=== PATIENT | male | born 1945 | race Caucasian/White ===

== ENCOUNTER 2016-08-26 10:06 | Day surgery (SDC) | payer MEDICARE ==
[~2016-08-26] VITALS: Ht 175.3 cm; Wt 135.4 kg
[2016-08-26] VITALS (9 sets, daily range): BP systolic 84–178; BP diastolic 55–87; PULSE 72–90; TEMP 97.8–98.4
[~2016-08-26 10:06] MED LIST: ABILIFY5 MG PO; ASPIRIN 81M81 MG/TA2 PO; ATIVAN 1MG T1 MG/TAB PO; CAPSAICIN TP; CEPHALEXIN500 M1 PO; COLACE50 MG PO; COUMADIN 5MG5 MG/TAB PO; COUMADIN 77.5 MG/TAB PO; COZAAR100 MG PO; D-31000 IU PO; DETROL 2MG TAB2 MG PO; DILAUDID 2MG TAB2 MG PO; DISALCID PO; GLUCOPHAGE1000 MG PO; GLUCOTROL 5M5 MG/TAB PO; KLOR-CON 1010 MEQ PO; LIPITOR 40MG TA40 MG PO; LOPRESSOR 225 MG/TAB PO; LYRICA 75MG CAP75 MG PO; MS CONTIN 115 MG/TAB PO; NIZORAL CREAM15 GM TP; NORCO 325 MG-51 TAB PO; NORCO 325 MG-7.1 TAB PO; PERI-COLACE 501 TAB PO; PYRIDIUM 100MG100 MG PO; SINEQUAN150 MG PO; VENLAFAXINE225 MG PO; WELLBUTRIN 75MG75 MG PO; ZOFRAN 4MG T4 MG/TAB PO
[2016-08-26] MEDS ORDERED: RESTORIL30 MG PO (10:51)
[2016-08-26] MEDS ORDERED: VTAMINC250TA PO (11:05)
[2016-08-26] MEDS ORDERED: COZAAR 25MG25 MG/TAB PO (11:06)
[2016-08-26] MEDS ORDERED: NOVLOG SQ (11:13)
[2016-08-26] MEDS ORDERED: INSLANT SQ (11:14)
[2016-08-26] MEDS ORDERED: MOBIC15 MG PO (11:15)
[2016-08-26] MEDS ORDERED: MIRALAX PA17 GM/Dose PO (11:16)
[2016-08-26] MEDS ORDERED: ARICEPT 5MG PO (11:17)
[2016-08-26] MEDS ORDERED: NORCO 325 MG-51 TAB PO (12:59)
[2016-08-26] MEDS ORDERED: PYRIDIUM 100MG100 MG PO (12:59)
== END 2016-08-26 15:19 | disposition home or self-care (01) ==
LOC: SDCO 10:06
DX: N20.0 Calculus of kidney (principal); Z87.442 Personal history of urinary calculi; I12.9 Hypertensive chronic kidney disease with stage 1 through stage 4 chronic kidney disease, or unspecified chronic kidney disease; E11.22 Type 2 diabetes mellitus with diabetic chronic kidney disease; N18.9 Chronic kidney disease, unspecified; E11.42 Type 2 diabetes mellitus with diabetic polyneuropathy; Z85.048 Personal history of other malignant neoplasm of rectum, rectosigmoid junction, and anus; Z79.01 Long term (current) use of anticoagulants; G20 Parkinson's disease; G30.9 Alzheimer's disease, unspecified; F02.80 Dementia in other diseases classified elsewhere, unspecified severity, without behavioral disturbance, psychotic disturbance, mood disturbance, and anxiety; E78.5 Hyperlipidemia, unspecified; E66.9 Obesity, unspecified; N52.9 Male erectile dysfunction, unspecified
CPT/HCPCS: C1769; C1894; C2617; J0690; J2405; J2704; J3010; J7030; Q9967

== ENCOUNTER 2016-08-29 22:20 | Inpatient (IN) | payer MEDICARE ==
[~2016-08-29] VITALS: Ht 175.3 cm; Wt 137.0 kg
[2016-08-29] VITALS (27 sets, daily range): BP systolic 137; BP diastolic 87; PULSE 91; TEMP 99; O2SAT 97–100
[~2016-08-29 22:20] MED LIST changes: +ARICEPT 5MG PO; +COZAAR 25MG25 MG/TAB PO; +INSLANT SQ; +MIRALAX PA17 GM/Dose PO; +MOBIC15 MG PO; +NOVLOG SQ; +RESTORIL30 MG PO; +VTAMINC250TA PO
[2016-08-29] MEDS ORDERED: CAPSAICIN0.025% TOP (23:48)
[2016-08-30] VITALS (642 sets, daily range): BP systolic 129–152; BP diastolic 59–89; PULSE 75–103; TEMP 97.3–101.8; O2SAT 56–100
[2016-08-30 01:25] LABS: BASO % 0.2 % (0.0-2.0); GRAN # 11.8 (1.4-6.5); HEMATOCRIT 44.4 % (42.0-52.0); HEMOGLOBIN 14.4 g/dl (13.5-18.0); LYMPH # 0.9 (1.2-3.4); LYMPH % 6.8 % (20.0-51.0); MEAN CELL VOLUME 96 fl (80.0-100.0); MEAN CORPUSCULAR HEMOGLOBIN 31 pg (27.0-31.0); MEAN CORPUSCULAR HGB CONC 32 g/dl (33.0-37.0); MEAN PLATELET VOLUME 9.2 fl (7.4-10.4); MONO % 7.5 % (1.7-9.3); PLATELET COUNT 205 K/mm3 (130-400); RED BLOOD COUNT 4.65 M/mm3 (4.20-5.60); REDCELL DISTRIBUTION WIDTH-CV 13.7 % (11.5-14.5); WHITE BLOOD COUNT 13.9 K/mm3 (4.8-10.8)
[2016-08-30 01:37] LABS: ADJUSTED CALCIUM 8.5 mg/dL (8.4-10.2); ALBUMIN 3.6 gm/dL (3.5-5.0); BILIRUBIN,TOTAL 1.1 mg/dL (0.0-1.0); CALCIUM 8.2 mg/dL (8.4-10.2); CREATININE, serum 1.47 mg/dL (0.66-1.25); POTASSIUM 4.4 mmol/L (3.4-5.0); TOTAL PROTEIN 6.5 gm/dL (6.4-8.2)
[2016-08-30 04:04] LABS: PH 5 (5-8); SQUAMOUS EPITHELIAL None Seen /hpf; URINE APPEARANCE Cloudy; URINE BACTERIA Rare /hpf; URINE BILIRUBIN Negative (NEGATIVE); URINE BLOOD 3+ (NEGATIVE); URINE COLOR Yellow; URINE GLUCOSE 2+ (NEGATIVE); URINE KETONE Trace (NEGATIVE); URINE RBC >50 /hpf; URINE UROBILINOGEN Negative (NEGATIVE)
[2016-08-30 04:05] LABS: URINE WBC >50 /hpf
[2016-08-30 06:30] LABS: INR 1.7 (0.8-3.0)
[2016-08-31 03:54] VITALS: BP 123/56; PULSE 75; TEMP 100.2
[2016-08-31 07:41] LABS: HEMATOCRIT 42.1 % (42.0-52.0); HEMOGLOBIN 13.6 g/dl (13.5-18.0); MEAN CELL VOLUME 96 fl (80.0-100.0); MEAN CORPUSCULAR HEMOGLOBIN 31 pg (27.0-31.0); MEAN CORPUSCULAR HGB CONC 32 g/dl (33.0-37.0); PLATELET COUNT 191 K/mm3 (130-400); RED BLOOD COUNT 4.38 M/mm3 (4.20-5.60); REDCELL DISTRIBUTION WIDTH-CV 13.8 % (11.5-14.5); WHITE BLOOD COUNT 6.4 K/mm3 (4.8-10.8)
[2016-08-31 07:42] VITALS: BP 141/54; PULSE 80; TEMP 98.5
[2016-08-31 07:43] LABS: ADJUSTED CALCIUM 8.1 mg/dL (8.4-10.2); ALBUMIN 3.1 gm/dL (3.5-5.0); BILIRUBIN,TOTAL 0.8 mg/dL (0.0-1.0); CALCIUM 7.4 mg/dL (8.4-10.2); CREATININE, serum 1.5 mg/dL (0.66-1.25); POTASSIUM 3.8 mmol/L (3.4-5.0); TOTAL PROTEIN 6.1 gm/dL (6.4-8.2)
[2016-08-31 08:07] LABS: INR 1.5 (0.8-3.0); PROTHROMBIN TIME 17.3 SECONDS (9.7-12.8)
[2016-08-31 08:21] LABS: ADD PATHOLOGY DIFF REVIEW NO
[2016-08-31 11:55] VITALS: BP 124/58; PULSE 74; TEMP 98.7
[2016-08-31 12:56] LABS: BAND 16 % (0-10); NEUTROPHILS 69 % (42.0-75.2); TOTAL CELLS COUNTED 100
[2016-08-31 12:57] LABS: ANISOCYTOSIS 1+; PLATELET ESTIMATE NORMAL (NORMAL)
[2016-08-31 15:30] VITALS: BP 143/60; PULSE 76; TEMP 98.8
[2016-08-31 20:14] VITALS: BP 138/74; PULSE 80; TEMP 98
[2016-08-31 23:43] VITALS: BP 135/71; PULSE 72; TEMP 98
[2016-09-01 04:15] VITALS: BP 135/66; PULSE 98; TEMP 98.3
[2016-09-01 08:15] VITALS: BP 134/40; PULSE 77; TEMP 97.7
[2016-09-01 09:23] LABS: INR 1.4 (0.8-3.0); PROTHROMBIN TIME 15.3 SECONDS (9.7-12.8)
[2016-09-01 09:29] LABS: CREATININE, serum 1.25 mg/dL (0.66-1.25); POTASSIUM 4.2 mmol/L (3.4-5.0)
[2016-09-01 12:14] VITALS: BP 120/82; PULSE 65; TEMP 98.6
[2016-09-01] MEDS ORDERED: LEVAQUIN 750MG750 M1 PO ×2 (13:55→14:23)
== END 2016-09-01 17:46 | disposition home or self-care (01) | DRG 862 ==
LOC: ICU 22:20 → MEDICAL 23:07 → ICU 23:07 → MEDICAL 08-30 19:10
PROVIDERS: Family Medicine; Internal Medicine; Physician Assistant
DX: T81.4XXA Infection following a procedure, initial encounter (principal); A41.50 Gram-negative sepsis, unspecified; N39.0 Urinary tract infection, site not specified; Z68.41 Body mass index [BMI] 40.0-44.9, adult; N18.9 Chronic kidney disease, unspecified; I12.9 Hypertensive chronic kidney disease with stage 1 through stage 4 chronic kidney disease, or unspecified chronic kidney disease; G20 Parkinson's disease; F02.80 Dementia in other diseases classified elsewhere, unspecified severity, without behavioral disturbance, psychotic disturbance, mood disturbance, and anxiety; E11.42 Type 2 diabetes mellitus with diabetic polyneuropathy; Z79.4 Long term (current) use of insulin; Z87.891 Personal history of nicotine dependence; E66.01 Morbid (severe) obesity due to excess calories; Z85.038 Personal history of other malignant neoplasm of large intestine; E11.22 Type 2 diabetes mellitus with diabetic chronic kidney disease; B96.4 Proteus (mirabilis) (morganii) as the cause of diseases classified elsewhere
CPT/HCPCS: 99222-AI; 99233-AI; 99239; C1769; C1894; C2617; J0690; J1815; J1940; J1956; J2185; J2405; J2704; J3010; J7030; Q9967

== ENCOUNTER 2016-09-21 23:28 | Inpatient (IN) | payer MEDICARE ==
[~2016-09-21] VITALS: Ht 175.3 cm; Wt 133.0 kg
[~2016-09-21 23:28] MED LIST changes: +CAPSAICIN0.025% TOP; +LEVAQUIN 750MG750 M1 PO
[2016-09-22] VITALS (12 sets, daily range): BP systolic 96–167; BP diastolic 41–84; PULSE 75–106; TEMP 97.7–98.7
[2016-09-22] MEDS ORDERED: VENTOLIN0.09 MG IH (00:11)
[2016-09-22] MEDS ORDERED: NORCO 325 MG-51 TAB PO (00:22)
[2016-09-22] MEDS ORDERED: PROTONIX 40MG T40 MG PO (00:23)
[2016-09-22] MEDS ORDERED: VIAGRA50 M1 (00:24)
[2016-09-22] MEDS ORDERED: COUMADIN 5MG5 MG/TAB PO (00:25)
[2016-09-22] MEDS ORDERED: COUMADIN 77.5 MG/TAB PO (00:26)
[2016-09-22 01:46] LABS: HEMATOCRIT 42.1 % (42.0-52.0); HEMOGLOBIN 14.2 g/dl (13.5-18.0); MEAN CELL VOLUME 92 fl (80.0-100.0); MEAN CORPUSCULAR HEMOGLOBIN 31 pg (27.0-31.0); MEAN CORPUSCULAR HGB CONC 34 g/dl (33.0-37.0); MEAN PLATELET VOLUME 9.3 fl (7.4-10.4); PLATELET COUNT 235 K/mm3 (130-400); RED BLOOD COUNT 4.58 M/mm3 (4.20-5.60); REDCELL DISTRIBUTION WIDTH-CV 13.6 % (11.5-14.5); WHITE BLOOD COUNT 16.9 K/mm3 (4.8-10.8)
[2016-09-22 01:48] LABS: ADD PATHOLOGY DIFF REVIEW NO
[2016-09-22 01:56] LABS: ADJUSTED CALCIUM 8.8 mg/dL (8.4-10.2); ALBUMIN 3.5 gm/dL (3.5-5.0); BILIRUBIN,TOTAL 0.8 mg/dL (0.0-1.0); CALCIUM 8.4 mg/dL (8.4-10.2); CREATININE, serum 1.37 mg/dL (0.66-1.25); POTASSIUM 5.1 mmol/L (3.4-5.0); TOTAL PROTEIN 6.1 gm/dL (6.4-8.2)
[2016-09-22 02:04] LABS: BAND 29 % (0-10); NEUTROPHILS 56 % (42.0-75.2); PLATELET ESTIMATE NORMAL (NORMAL); TOTAL CELLS COUNTED 100
[2016-09-22 07:46] LABS: HEMATOCRIT 40.6 % (42.0-52.0); HEMOGLOBIN 13.9 g/dl (13.5-18.0); MEAN CELL VOLUME 92 fl (80.0-100.0); MEAN CORPUSCULAR HEMOGLOBIN 31 pg (27.0-31.0); MEAN CORPUSCULAR HGB CONC 34 g/dl (33.0-37.0); MEAN PLATELET VOLUME 9.8 fl (7.4-10.4); PLATELET COUNT 228 K/mm3 (130-400); RED BLOOD COUNT 4.42 M/mm3 (4.20-5.60); REDCELL DISTRIBUTION WIDTH-CV 13.8 % (11.5-14.5); WHITE BLOOD COUNT 15.9 K/mm3 (4.8-10.8)
[2016-09-22 07:49] LABS: INR 3.1 (0.8-3.0); PROTHROMBIN TIME 35.7 SECONDS (9.7-12.8)
[2016-09-22 12:22] LABS: HEMATOCRIT 42.2 % (42.0-52.0); HEMOGLOBIN 14.2 g/dl (13.5-18.0); MEAN CELL VOLUME 93 fl (80.0-100.0); MEAN CORPUSCULAR HEMOGLOBIN 31 pg (27.0-31.0); MEAN CORPUSCULAR HGB CONC 34 g/dl (33.0-37.0); MEAN PLATELET VOLUME 9.9 fl (7.4-10.4); PLATELET COUNT 184 K/mm3 (130-400); RED BLOOD COUNT 4.54 M/mm3 (4.20-5.60); REDCELL DISTRIBUTION WIDTH-CV 14.2 % (11.5-14.5); WHITE BLOOD COUNT 13.9 K/mm3 (4.8-10.8)
[2016-09-22 17:17] LABS: HEMATOCRIT 38.3 % (42.0-52.0); MEAN CELL VOLUME 92 fl (80.0-100.0); MEAN CORPUSCULAR HEMOGLOBIN 31 pg (27.0-31.0); MEAN CORPUSCULAR HGB CONC 34 g/dl (33.0-37.0); MEAN PLATELET VOLUME 9.6 fl (7.4-10.4); PLATELET COUNT 216 K/mm3 (130-400); RED BLOOD COUNT 4.17 M/mm3 (4.20-5.60); WHITE BLOOD COUNT 11.5 K/mm3 (4.8-10.8)
[2016-09-22 23:13] LABS: HEMOGLOBIN 13.1 g/dl (13.5-18.0); MEAN CELL VOLUME 92 fl (80.0-100.0); MEAN CORPUSCULAR HEMOGLOBIN 31 pg (27.0-31.0); MEAN CORPUSCULAR HGB CONC 34 g/dl (33.0-37.0); MEAN PLATELET VOLUME 9.4 fl (7.4-10.4); PLATELET COUNT 188 K/mm3 (130-400); RED BLOOD COUNT 4.22 M/mm3 (4.20-5.60); WHITE BLOOD COUNT 9.8 K/mm3 (4.8-10.8)
[2016-09-23 02:18] VITALS: BP 138/52; PULSE 68; TEMP 98.7
[2016-09-23 07:40] LABS: BASO # 0.1 (0.0-0.2); BASO % 0.6 % (0.0-2.0); EOS # 0.7 (0.0-0.7); EOS % 9.1 % (0-4.0); GRAN # 4.4 (1.4-6.5); HEMOGLOBIN 12.5 g/dl (13.5-18.0); LYMPH # 2.2 (1.2-3.4); LYMPH % 27.4 % (20.0-51.0); MEAN CELL VOLUME 94 fl (80.0-100.0); MEAN CORPUSCULAR HEMOGLOBIN 31 pg (27.0-31.0); MEAN CORPUSCULAR HGB CONC 33 g/dl (33.0-37.0); MEAN PLATELET VOLUME 9.8 fl (7.4-10.4); MONO # 0.7 (0.1-0.6); MONO % 8.7 % (1.7-9.3); PLATELET COUNT 191 K/mm3 (130-400); RED BLOOD COUNT 4.06 M/mm3 (4.20-5.60); REDCELL DISTRIBUTION WIDTH-CV 13.8 % (11.5-14.5); WHITE BLOOD COUNT 8.1 K/mm3 (4.8-10.8)
[2016-09-23 07:51] LABS: INR 2.6 (0.8-3.0); PROTHROMBIN TIME 30.3 SECONDS (9.7-12.8)
[2016-09-23 08:05] VITALS: BP 143/62; PULSE 71; TEMP 98.1
[2016-09-23] MEDS ORDERED: ULTRAM 50MG TAB50 MG PO (09:54)
[2016-09-23 12:01] VITALS: BP 134/70; PULSE 67; TEMP 98
== END 2016-09-23 14:40 | disposition home or self-care (01) | DRG 379 ==
LOC: MEDICAL 23:28
PROVIDERS: Internal Medicine Cardiovascular Disease; Internal Medicine Gastroenterology; Physician Assistant
PROC: 0DB78ZX Excision of Stomach, Pylorus, Via Natural or Artificial Opening Endoscopic, Diagnostic (ICD-10-PCS; principal; 2016-09-22 12:30)
DX: K25.4 Chronic or unspecified gastric ulcer with hemorrhage (principal); E11.9 Type 2 diabetes mellitus without complications; G47.33 Obstructive sleep apnea (adult) (pediatric); I12.9 Hypertensive chronic kidney disease with stage 1 through stage 4 chronic kidney disease, or unspecified chronic kidney disease; N18.9 Chronic kidney disease, unspecified; Z79.1 Long term (current) use of non-steroidal anti-inflammatories (NSAID); Z79.4 Long term (current) use of insulin; Z86.718 Personal history of other venous thrombosis and embolism; Z79.01 Long term (current) use of anticoagulants; Z87.891 Personal history of nicotine dependence
CPT/HCPCS: 99223-AI; 99232-AI; 99239; J1815; J2250; J3010; J7030

== ENCOUNTER 2017-10-19 13:36 | Day surgery (SDC) | payer MEDICARE ==
[2017-10-19] VITALS (7 sets, daily range): BP systolic 126–158; BP diastolic 66–102; PULSE 64–86; TEMP 98.1–98.5
[~2017-10-19] VITALS: Ht 175.3 cm; Wt 134.6 kg
[~2017-10-19 13:36] MED LIST changes: -D-31000 IU PO; +PROTONIX 40MG T40 MG PO; +ULTRAM 50MG TAB50 MG PO; +VENTOLIN0.09 MG IH; +VIAGRA50 M1; +VITAMIN D31000 I1 PO
[2017-10-19] MEDS ORDERED: LIPITOR 80MG80 MG PO (15:55)
[2017-10-19] MEDS ORDERED: COUMADIN 5MG5 MG/TAB PO (15:56)
[2017-10-19] MEDS ORDERED: MELATONIN 3MG PO (16:16)
[2017-10-19] MEDS ORDERED: TRICOR145 MG PO (16:16)
[2017-10-19] MEDS ORDERED: FENTANYL 12MCG TD (16:17)
[2017-10-19 17:38] LABS: BASO % 0.3 % (0.0-2.0); EOS # 0.1 (0.0-0.7); EOS % 1.4 % (0-4.0); GRAN # 7.3 (1.4-6.5); GRAN % 70.7 % (42.2-75.2); HEMATOCRIT 43.1 % (42.0-52.0); HEMOGLOBIN 14.2 g/dl (13.5-18.0); LYMPH # 1.8 (1.2-3.4); LYMPH % 17.4 % (20.0-51.0); MEAN CELL VOLUME 92 fl (80.0-100.0); MEAN CORPUSCULAR HEMOGLOBIN 30 pg (27.0-31.0); MEAN CORPUSCULAR HGB CONC 33 g/dl (33.0-37.0); MEAN PLATELET VOLUME 9.3 fl (7.4-10.4); MONO % 9.9 % (1.7-9.3); PLATELET COUNT 269 K/mm3 (130-400); RED BLOOD COUNT 4.68 M/mm3 (4.20-5.60); REDCELL DISTRIBUTION WIDTH-CV 13.2 % (11.5-14.5)
[2017-10-19 17:46] LABS: ALBUMIN 3.5 gm/dL (3.5-5.0); BILIRUBIN,TOTAL 0.3 mg/dL (0.0-1.0); CALCIUM 8.4 mg/dL (8.4-10.2); CREATININE, serum 2.44 mg/dL (0.66-1.25); POTASSIUM 4.3 mmol/L (3.4-5.0); TOTAL PROTEIN 6.2 gm/dL (6.4-8.2)
[2017-10-19 20:15] LABS: AMORPHOUS CRYSTAL Present /uL; BUDDING YEAST Present /hpf; MUCOUS Present /lpf; PH 5 (5-8); SQUAMOUS EPITHELIAL None Seen /hpf; URINE APPEARANCE Turbid; URINE BACTERIA Rare /hpf; URINE BILIRUBIN Negative (NEGATIVE); URINE BLOOD 1+ (NEGATIVE); URINE COLOR Yellow; URINE GLUCOSE Negative (NEGATIVE); URINE KETONE Negative (NEGATIVE); URINE LEUKOCYTE ESTERASE Negative (NEGATIVE); URINE NITRATE Negative (NEGATIVE); URINE PROTEIN(semi-quant) Negative (NEGATIVE); URINE UROBILINOGEN Negative (NEGATIVE)
[2017-10-19 20:24] LABS: COLLECTION METHOD CLEAN CATCH
[2017-10-20 00:20] VITALS: BP 177/73; PULSE 72
[2017-10-20 00:50] VITALS: BP 140/62; PULSE 71
[2017-10-20 01:50] VITALS: BP 141/64; PULSE 72
[2017-10-20 02:50] VITALS: BP 119/58; PULSE 73
[2017-10-20 07:42] VITALS: BP 153/55; PULSE 78; TEMP 99.6
[2017-10-20 11:39] VITALS: BP 135/77; PULSE 75; TEMP 98.2
[2017-10-20 11:51] LABS: CALCIUM 8.2 mg/dL (8.4-10.2); CREATININE, serum 2.23 mg/dL (0.66-1.25); POTASSIUM 4.5 mmol/L (3.4-5.0)
== END 2017-10-20 15:11 | disposition home or self-care (01) ==
LOC: SDCO 13:36 → SURG 14:30 → SDCO 22:45
PROVIDERS: Urology
DX: N20.1 Calculus of ureter (principal); I12.9 Hypertensive chronic kidney disease with stage 1 through stage 4 chronic kidney disease, or unspecified chronic kidney disease; E11.22 Type 2 diabetes mellitus with diabetic chronic kidney disease; E11.40 Type 2 diabetes mellitus with diabetic neuropathy, unspecified; N18.9 Chronic kidney disease, unspecified; G30.9 Alzheimer's disease, unspecified; F02.80 Dementia in other diseases classified elsewhere, unspecified severity, without behavioral disturbance, psychotic disturbance, mood disturbance, and anxiety; E78.5 Hyperlipidemia, unspecified; G20 Parkinson's disease; N52.9 Male erectile dysfunction, unspecified; M19.90 Unspecified osteoarthritis, unspecified site; F32.9 Major depressive disorder, single episode, unspecified; G47.33 Obstructive sleep apnea (adult) (pediatric); E66.01 Morbid (severe) obesity due to excess calories; Z79.4 Long term (current) use of insulin; Z79.01 Long term (current) use of anticoagulants; Z79.82 Long term (current) use of aspirin; Z88.0 Allergy status to penicillin; Z88.8 Allergy status to other drugs, medicaments and biological substances; Z87.891 Personal history of nicotine dependence; Z86.718 Personal history of other venous thrombosis and embolism; Z85.038 Personal history of other malignant neoplasm of large intestine; Z86.73 Personal history of transient ischemic attack (TIA), and cerebral infarction without residual deficits; Z80.0 Family history of malignant neoplasm of digestive organs; Z80.1 Family history of malignant neoplasm of trachea, bronchus and lung
CPT/HCPCS: OP; A9284; C1769; C2617; J0690; J0696; J1815; J1885; J2704; J2765; J3010; J7030; Q9967

== ENCOUNTER 2019-01-19 15:59 | Inpatient (IN) | payer MEDICARE ==
[2019-01-19] VITALS (293 sets, daily range): BP systolic 153–161; BP diastolic 68–110; PULSE 62; TEMP 97.9–98; O2SAT 90–97
[~2019-01-19] VITALS: Ht 175.3 cm; Wt 222.2 kg
[~2019-01-19 15:59] MED LIST changes: -COZAAR 25MG25 MG/TAB PO; +COZAAR 50MG50 MG/TAB PO; +FENTANYL 25 MCG TD; +LIPITOR 80MG80 MG PO; -LOPRESSOR 225 MG/TAB PO; +LOPRESSOR 550 MG/TAB PO; +MELAT3MGTAB PO; +TRICOR145 MG PO; +TYLENOL 500MG500 MG PO
[2019-01-19 17:02] LABS: ALANINE AMINOTRANSFERASE 58 U/L (21-72); ALBUMIN 4.2 gm/dL (3.5-5.0); ALKALINE PHOSPHATASE 42 U/L (50-136); ANION GAP 11 mmol/L (7-16); AST,SGOT 44 U/L (15-37); BASO % 0.4 % (0.0-2.0); BILIRUBIN,TOTAL 0.4 mg/dL (0.0-1.0); BLOOD UREA NITROGEN 28 mg/dL (9-20); CALCIUM 9.3 mg/dL (8.4-10.2); CARBON DIOXIDE 25 mmol/L (22-30); CHLORIDE 105 mmol/L (98-107); CREATININE, serum 1.87 (0.66-1.25); EOS # 0.1 (0.0-0.7); EOS % 1.9 % (0-4.0); GLUCOSE 144 mg/dL (74-106); GRAN # 4.1 (1.4-6.5); GRAN % 59.3 % (42.2-75.2); HEMATOCRIT 49.8 % (42.0-52.0); HEMOGLOBIN 16.4 g/dl (13.5-18.0); LYMPH # 1.9 (1.2-3.4); LYMPH % 27.8 % (20.0-51.0); MEAN CELL VOLUME 91 fl (80.0-100.0); MEAN CORPUSCULAR HEMOGLOBIN 30 pg (27.0-31.0); MEAN CORPUSCULAR HGB CONC 33 g/dl (33.0-37.0); MEAN PLATELET VOLUME 9.3 fl (7.4-10.4); MONO # 0.7 (0.1-0.6); MONO % 10.3 % (1.7-9.3); PLATELET COUNT 251 K/mm3 (130-400); RED BLOOD COUNT 5.47 M/mm3 (4.20-5.60); REDCELL DISTRIBUTION WIDTH-CV 13.9 % (11.5-14.5); SODIUM 141 mmol/L (137-145)
[2019-01-19] MEDS ORDERED: PLAVIX 75MG TAB75 MG PO (17:10)
[2019-01-19] MEDS ORDERED: FLOMAX 0.40.4 MG/CAP PO (17:11)
[2019-01-19] MEDS ORDERED: EXELON PAT4.6 MG/24 TD (17:11)
[2019-01-19] MEDS ORDERED: COREG12.5 MG (17:11)
[2019-01-19] MEDS ORDERED: SYNTHROID 0.0.025 MG PO (17:12)
[2019-01-19 17:13] LABS: TROPONIN-I < 0.012 ng/mL (0.000-0.035)
[2019-01-19 17:22] LABS: PROTHROMBIN TIME 36.8 SECONDS (9.7-12.8)
[2019-01-19 17:24] LABS: PARTIAL THROMBOPLASTIN TIME 49.7 SECONDS (26.0-37.0)
--- NOTE | 2019-01-19 17:45 | NUR ---
Patient arrives to ICU [facility] ED cart. He ambulates from cart to bed with shuffling gait. Peripheral IV to left hand without complication. Nitro gtt verified and MIVF rate confirmed. Patient denies chest pain or pressure or pain at this time. Assessment and vitals as charted. Care assumed.
--- NOTE | 2019-01-19 18:24 | NUR ---
Dr. Morley notified of patient arrival to unit. also notified of med rec completion and patient report of fentanyl patch falling off after application 01/18/19. states he will be down shortly.
--- NOTE | 2019-01-19 19:15 | NUR ---
Received bedside report from KEV Dickerson. Patient resting in bed; no complaints at this time.
--- NOTE | 2019-01-19 19:35 | NUR ---
Dr. Milli lemon at bedside to see patient.
--- NOTE | 2019-01-19 19:40 | NUR ---
Heparin on hold due to therapeutic INR; order per Dr. Morley.
[2019-01-19] MEDS ORDERED: FENTANYL 100MCG TD (22:40)
[2019-01-20] VITALS (454 sets, daily range): BP systolic 96–166; BP diastolic 61–94; PULSE 54–69; TEMP 97.6–98.7; O2SAT 81–98
--- NOTE | 2019-01-20 00:19 | NUR ---
Brief wet; assisted with ean-care and placing a new brief. Denies any pain at this time. Reported earlier around 2200 having some episodes of what felt like palpitations. Episodes lasted only very briefly. No arrhythmias noted on monitor. Denies any concerns or other needs at this time.
--- NOTE | 2019-01-20 01:26 | NUR ---
02 periodically dropping to low 90's. Placed on 2L NC. RT notified. Patient refused offer X2 for wear CPAP. 02 currenlty 98% on 2L.
--- NOTE | 2019-01-20 04:36 | NUR ---
pt has a cpap at home, states he "wears it off and on" this rt told the pt we have cpap with a mask avaliable to him to use, he stated "no I will be okay without one" therefore this note is being put in and pt is on 2 lpm during the night otherwise on room air during the day mario well with no distress noted at any time. will continue to monitor and assess.
[2019-01-20 05:38] LABS: BASO % 0.7 % (0.0-2.0); EOS # 0.3 (0.0-0.7); EOS % 4.3 % (0-4.0); GRAN # 2.6 (1.4-6.5); GRAN % 44.7 % (42.2-75.2); HEMOGLOBIN 14.6 g/dl (13.5-18.0); LYMPH # 2.2 (1.2-3.4); LYMPH % 38.3 % (20.0-51.0); MEAN CELL VOLUME 92 fl (80.0-100.0); MEAN CORPUSCULAR HEMOGLOBIN 30 pg (27.0-31.0); MEAN CORPUSCULAR HGB CONC 32 g/dl (33.0-37.0); MONO # 0.7 (0.1-0.6); MONO % 11.8 % (1.7-9.3); PLATELET COUNT 210 K/mm3 (130-400); RED BLOOD COUNT 4.87 M/mm3 (4.20-5.60)
[2019-01-20 05:41] LABS: INR 2.7 (0.8-3.0); PROTHROMBIN TIME 32.8 SECONDS (9.7-12.8)
[2019-01-20 05:48] LABS: ANION GAP 7 mmol/L (7-16); BLOOD UREA NITROGEN 29 mg/dL (9-20); CALCIUM 8.6 mg/dL (8.4-10.2); CARBON DIOXIDE 27 mmol/L (22-30); CHLORIDE 106 mmol/L (98-107); CHOLESTEROL 128 mg/dL (120-200); CHOLESTEROL RISK RATIO 4.7; CREATININE, serum 1.65 (0.66-1.25); GLUCOSE 122 mg/dL (74-106); HDL CHOLESTEROL 27 mg/dL; LDL CHOLESTEROL 61 mg/dL; POTASSIUM 4.3 mmol/L (3.4-5.0); SODIUM 140 mmol/L (137-145); TRIGLYCERIDE 199 mg/dL
--- NOTE | 2019-01-20 05:54 | NUR ---
Assisted with incontinent care and provided with clean brief. Denies any other complaints or concerns at this time.
[2019-01-20 05:57] LABS: TROPONIN-I < 0.012 ng/mL (0.000-0.035)
--- NOTE | 2019-01-20 07:06 | NUR ---
Bedside report given to KEV Bynum. Patient care transfered.
--- NOTE | 2019-01-20 07:30 | NUR ---
Pt AAOx4 in bed, bed alarm on (Fall risk education provided), call light and urinal within reach. No complaints of chest pain or shortness of breath - KEV Betancourt and pt did report 2 episodoes of, what pt thinks might be, shortness of breath related to anxiety. Nitroglycerine and NS gtts infusing - rate confirmed - No concerns at this time
--- NOTE | 2019-01-20 08:21 | NUR ---
MD Lyric contacted - orders received and plan of care is to perform cardiac cathertization today TORB: NPO now, not sure of what time he will perform procedure Pt undated, questions invited and answered.
--- NOTE | 2019-01-20 09:15 | NUR ---
KEV Cota from [facility] here to see pt
--- NOTE | 2019-01-20 09:52 | NUR ---
Initial visit; Patient thanked Judo Instructor for offering God's blessings.
--- NOTE | 2019-01-20 09:52 | NUR ---
SEE VALERIE FOR ALL MEDICATION ADMINISTRATION AND INTRA/POST SEDATION ASSESSMENT
--- NOTE | 2019-01-20 16:19 | NUR ---
PROJECT FINANCE ANALYST student met with the patient to discuss a discharge plan. The patient lives with his , Nahomy and their son in [place]. The patient has a cane, walker and CPAP (receives supplies from [place]). The patient reports his assist with ADLs. The patient reports he receives outpatient physical therapy at [facility] twice a week. The patient's PCP is Dr. Daniels and patient [place] [facility] [place]. The patient does not have advanced directives in the EMR and patient was no interested in obtaining a DPOA-HC form. The patient inquired about home health services for alf; student provided a list from Medicare.gov. The patient may not want home health at this time please follow up when recommendations are made. patient services rep will continue to follow.
--- NOTE | 2019-01-20 19:10 | NUR ---
Bedside report received from KEV Bynum. Patient care transfered. Radial cath site checked. Clean, dry and intact with no bleeding. TR band in place. Pulse +2 with good sensation to hand. Denies any complaints at this time.
[2019-01-21] VITALS (125 sets, daily range): BP systolic 125–171; BP diastolic 71–78; PULSE 59–67; TEMP 97.4–97.7; O2SAT 79–99
--- NOTE | 2019-01-21 01:42 | NUR ---
Reports some tenderness to right radial cath site. Site clean dry and intact with no hematoma. Radial compression reduced by 5ml. Denies any needs at this time. Will continue to monitor.
--- NOTE | 2019-01-21 06:24 | NUR ---
Resting in bed with eyes shut. No concerns at this time.
--- NOTE | 2019-01-21 07:42 | NUR ---
Bedside report given to KEV Atwood and KEV Teague. Patient care transfered.
[2019-01-21 07:44] LABS: INR 1.9 (0.8-3.0); PROTHROMBIN TIME 22.6 SECONDS (9.7-12.8)
[2019-01-21 07:48] LABS: CALCIUM 8.2 mg/dL (8.4-10.2); CREATININE, serum 1.49 (0.66-1.25); POTASSIUM 4.2 mmol/L (3.4-5.0)
--- NOTE | 2019-01-21 09:30 | NUR ---
TR BAND REMOVED FROM RIGHT RADIAL AREA, NO BLEEDING, SMALL BRUISE UNDER PUNCTURE SITE NOTED, AREA CLEANED AND DRESSING APPLIED. PATIENT TOLERATED WELL, EDUCATED ABOUT HEMORRHAGE RISKS AND WHEN TO NOTIFY RN OF CONCERNS. PATIENT PLEASANT AND COOPERATIVE, VERBALIZED UNDERSTANDING OF EDUCATION PROVIDED.
--- NOTE | 2019-01-21 10:00 | NUR ---
CALLED TO CHECK ON PATIENT, DISCUSSED DISCHARGE PLANS, ALSO TALKED WITH PATIENT. NO CONCERNS AT THIS TIME.
[2019-01-21] MEDS ORDERED: ASPIRIN E.C. 8181 MG PO (11:42)
--- NOTE | 2019-01-21 12:46 | NUR ---
Pt discharged to home via private vehicle at this time. Pt was escorted by this RN via wheelchair and tolerated transfer with no complaints or concerns raised. Discharge education and instructions provided and no questions or concerns were raised by patient.
== END 2019-01-21 12:46 | disposition home or self-care (01) | DRG 247 ==
LOC: COL.ER 15:59 → ICU 17:13 → EDBEDREQ 17:16 → ICU 01-21 12:46
PROVIDERS: Emergency Medicine; Internal Medicine; Internal Medicine Cardiovascular Disease; ADMIT Student in an Organized Health Care Education/Training Program
PROC: 027034Z Dilation of Coronary Artery, One Artery with Drug-eluting Intraluminal Device, Percutaneous Approach (ICD-10-PCS; principal; 2019-01-20)
PROC: 4A023N7 Measurement of Cardiac Sampling and Pressure, Left Heart, Percutaneous Approach (ICD-10-PCS; 2019-01-20)
PROC: B2111ZZ Fluoroscopy of Multiple Coronary Arteries using Low Osmolar Contrast (ICD-10-PCS; 2019-01-20)
PROC: 4A033BC Measurement of Arterial Pressure, Coronary, Percutaneous Approach (ICD-10-PCS; 2019-01-20)
PROC: B2151ZZ Fluoroscopy of Left Heart using Low Osmolar Contrast (ICD-10-PCS; 2019-01-20)
DX: I25.110 Atherosclerotic heart disease of native coronary artery with unstable angina pectoris (principal); E78.5 Hyperlipidemia, unspecified; E11.22 Type 2 diabetes mellitus with diabetic chronic kidney disease; N18.3 Chronic kidney disease, stage 3 (moderate); I12.9 Hypertensive chronic kidney disease with stage 1 through stage 4 chronic kidney disease, or unspecified chronic kidney disease; E66.01 Morbid (severe) obesity due to excess calories; Z68.39 Body mass index [BMI] 39.0-39.9, adult; G47.33 Obstructive sleep apnea (adult) (pediatric)
CPT/HCPCS: 99223-AI; 99232-AI; 99239; C9600; J0153; J1644; J1815; J2250; J3010; J7030